=== PATIENT | male | born 1955 | race Caucasian/White ===

== ENCOUNTER 2024-01-11 05:54 | Day surgery (SDC) | payer MEDICARE, SELFPAY ==
[2023-12-19 10:19] VITALS: BMI 28.9
[2023-12-25 08:36] VITALS: BMI 27.6
[2024-01-11 06:19] VITALS: BMI 28.5
[2024-01-11 06:21] VITALS: BP 125/78; PULSE 71; RESP 18; TEMP 36.5; O2SAT 100
--- NOTE | 2024-01-11 07:10 | PM.HPGS ---
History of Present Illness History of Present Illness Consent: Risks, benefits, and alternatives have been discussed and questions answered. Patient agrees to proceed with procedure. Chief complaint: Personal history of colon polyps Narrative: Alex Miranda is a 68 year old male colonoscopy. Patient was found to have adenomatous colon polyps in 2019 and 2015. Patient reports his current weight appetite and bowel movements are normal. He presents today for screening colonoscopy. Family history noncontributory. Review of Systems Review of Systems: Review of systems noncontributory. [facility] Family History Family History (Updated 06/03/22 @ 10:11 by Carlita Corona MA) Father Hypertension Mother Hypertension Grandparent Diabetes mellitus Cerebrovascular accident Sibling Acute myocardial infarction Heart disease Other Colon polyp Social History Social History (Updated 06/03/22 @ 10:12 by Carlita Corona MA) Smoking status: Former smoker Second hand tobacco smoke exposure: No Smoking end date: 11/29/98 Alcohol intake: current Alcohol use details: Ocassional Substance use: never Substance use type: does not use Living arrangements: alone Occupation/Education: retired Gender identity (if verbalized by the patient): Male Sexual Orientation (if Verbalized by the Patient): Straight or Heterosexual Spiritual care concerns: No Agree to blood products: Yes Meds Home Medications and Allergies Home Medications Medication Instructions Recorded Confirmed Type aspirin 81 mg tablet,delayed 81 mg PO DAILY 06/03/22 01/11/24 History release (Adult Aspirin Regimen) metoprolol succinate 50 mg 25 mg PO DAILY 06/03/22 01/11/24 History tablet,extended release 24 hr hydrochlorothiazide 12.5 mg tablet See Rx Instructions .Route 08/02/23 01/11/24 Rx .COMPLEX #90 tabs atorvastatin 40 mg tablet 40 mg PO DAILY #90 tabs 08/28/23 01/11/24 Rx benazepril 20 mg tablet See Rx Instructions .Route 10/26/23 01/11/24 Rx .COMPLEX #90 tabs Allergies Allergy/AdvReac Type Severity Reaction Status Date / Time No Known Allergies Allergy Verified 01/11/24 06:10 Vital Signs Vital Signs - 24 hr 01/11/24 06:21 Temperature 97.7 F Pulse Rate 71 Respiratory Rate 18 Blood Pressure 125/78 Pulse Oximetry 100 Oxygen Delivery Room Air Exam Narrative: Physical exam reveals patient to be alert. Vital signs stable. HEENT exam is unremarkable. Patient is anicteric. Lungs are clear to auscultation and percussion. Heart is without murmur extra sounds. Abdomen bowel sounds are present soft nontender with no organomegaly. Digital external rectal exam is normal. Assessment and Plan Assessment and plan (1) History of colon polyps: Code(s): Z86.010 - Personal history of colonic polyps Status: Acute Assessment and Plan: Patient has a history of adenomatous colon polyps removed from the colon in 2019 and 2015. Plan for surveillance colonoscopy now and at intervals in the future. Further recommendations may be given after endoscopy.
[2024-01-11] MEDS: LACTATED RINGERS 1,000 ML 150 ML IV CONT (07:19)
--- NOTE | 2024-01-11 07:27 | P.PNAN_ITS ---
Anes - Initial Pre Proc Eval Procedure: Operation Date: 01/11/24 07:30 Proposed Procedures p Diagnostic Colonoscopy - Jeremy Nava MD Date/Time: 01/11/24 07:27 Surgeon: Jeremy Nava MD Pre Op Diagnosis: Personal history of colon polyps Patient Data Age: 68 Gender: M Height: 1.85 m Weight: 97.9 kg Last Vital Signs Temp 36.5 C 01/11/24 06:21 Pulse 71 01/11/24 06:21 Resp 18 01/11/24 06:21 BP 125/78 01/11/24 06:21 Pulse Ox 100 01/11/24 06:21 O2 Del Method Room Air 01/11/24 06:21 Allergies Allergy/AdvReac Type Severity Reaction Status Date / Time No Known Allergies Allergy Verified 01/11/24 06:10 Home Medications Medication Instructions Recorded Confirmed Type aspirin 81 mg tablet,delayed 81 mg PO DAILY 06/03/22 01/11/24 History release (Adult Aspirin Regimen) metoprolol succinate 50 mg 25 mg PO DAILY 06/03/22 01/11/24 History tablet,extended release 24 hr hydrochlorothiazide 12.5 mg tablet See Rx Instructions .Route 08/02/23 01/11/24 Rx .COMPLEX #90 tabs atorvastatin 40 mg tablet 40 mg PO DAILY #90 tabs 08/28/23 01/11/24 Rx benazepril 20 mg tablet See Rx Instructions .Route 10/26/23 01/11/24 Rx .COMPLEX #90 tabs Patient hx anesthesia problems: none Family hx anesthesia problems: none Results Review: All pre-operative results and documents have been reviewed as part of the pre- operative evaluation. [facility] Family History Family History Father Hypertension Mother Hypertension Grandparent Diabetes mellitus Cerebrovascular accident Sibling Acute myocardial infarction Heart disease Other Colon polyp Social History Social History Smoking status: Former smoker Second hand tobacco smoke exposure: No Smoking end date: 11/29/98 Alcohol intake: current Alcohol use details: Ocassional Substance use: never Substance use type: does not use Living arrangements: alone Occupation/Education: retired Gender identity (if verbalized by the patient): Male Sexual Orientation (if Verbalized by the Patient): Straight or Heterosexual Spiritual care concerns: No Agree to blood products: Yes Anes - Eval Final PreProcedure Day of Procedure 01/11/24 07:27 Patient weight: overweight Heart: regular rate and rhythm Lungs: clear to auscultation Airway: Mallampati scale class II Neurological: alert and oriented Last oral intake: >/= 8 hours ASA classification: III Emergent: no Anesthetic plan: proceed Anesthesia type and monitoring: general GIVS and standard monitoring Results Review: All pre-operative results and documents have been reviewed as part of the pre- operative evaluation. Informed Consent: The patient's anesthetic plan and its attendant risks and benefits were discussed with the patient/family/POA. Questions were solicited and answers provided to the satisfaction of the patient/family/POA.
[2024-01-11 08:03] VITALS: BP 100/63; PULSE 56; RESP 16; O2SAT 99
[2024-01-11 08:13] VITALS: BP 102/66; PULSE 74; RESP 16; O2SAT 100
[2024-01-11 08:23] VITALS: BP 116/74; PULSE 70; RESP 14; O2SAT 100
--- NOTE | 2024-01-11 08:36 | WPDANESPN ---
Anes - Prog Note Post-Op Date/Time: 01/11/24 08:36 Cardiovascular status: normal Respiratory status: normal Airway patency: baseline Mental status: baseline Post-Op hydration status: normal Vital Signs: Last Vital Signs Temp 36.5 C 01/11/24 06:21 Pulse 70 01/11/24 08:23 Resp 14 01/11/24 08:23 BP 116/74 01/11/24 08:23 Pulse Ox 100 01/11/24 08:23 O2 Del Method Room Air 01/11/24 08:23 Pain Score (VAS): 0 I/O: Intake & Output 01/10/24 01/11/24 01/11/24 23:59 07:59 15:59 Intake Total 500 300 Balance 500 300 Patient Feedback: Patient satisfied with anesthetic care.
== END 2024-01-11 08:32 | disposition home or self-care (01) ==
PROVIDERS: PCP Family Medicine Adolescent Medicine; Visit Provider Internal Medicine Gastroenterology
PROC: 0DJD8ZZ Inspection of Lower Intestinal Tract, Via Natural or Artificial Opening Endoscopic (ICD-10-PCS; CPT 45378; principal; 2024-01-11 07:30)
DX: Z86.010 Personal history of colon polyps (principal); D12.8 Benign neoplasm of rectum; K57.30 Diverticulosis of large intestine without perforation or abscess without bleeding; K64.8 Other hemorrhoids
CPT/HCPCS: 45378

== ENCOUNTER 2024-01-11 08:34 | Outpatient (NON) | payer MEDICARE, SELFPAY | END 2024-01-11 08:35 | disposition home or self-care (01) | PROVIDERS: PCP Family Medicine Adolescent Medicine; Visit Provider Internal Medicine Gastroenterology | DX: Z86.010 Personal history of colon polyps (principal) | CPT/HCPCS: 88305 ==

== ENCOUNTER 2025-09-23 12:02 | Outpatient (CLI) | payer MEDICARE, SELFPAY ==
--- NOTE | ~2025-09-23 | XR_ITS ---
PROCEDURE(S): Right hip radiographs, 2 views INDICATION(S): Pain COMPARISON(S): None. TECHNIQUE: 2 radiographic images were submitted for interpretation. FINDINGS: Bones: There are no fractures seen. There are no destructive lesions or other lesions identified. Joints: There is evidence of severe osteoarthritic type change with near complete loss of the joint space in the weightbearing direction (superior). On either side of the joint, there is significant sclerosis. There are subchondral cyst formation. There is osteophyte formation, to a lesser extent. There are no dislocations identified. There is no evidence of erosive arthropathy. IMPRESSION: Significant osteoarthritic type change as described Reviewed, dictated and finalized at location [facility]. [employer]
== END 2025-09-23 12:03 | disposition home or self-care (01) ==
PROVIDERS: PCP Family Medicine Adolescent Medicine; Visit Provider Family Medicine Adolescent Medicine
DX: M25.551 Pain in right hip (principal)
CPT/HCPCS: 73502